=== PATIENT | male | born 1975 | race Hispanic/Latino ===

== ENCOUNTER 2016-08-18 20:15 | Emergency (ER) | payer OTHER ==
[~2016-08-18 20:15] MED LIST: ADVAIR DISKUS1 UNIT INH; ALBUTEROL SULFAT3 M1 INH; ALLEGRA180 MG PO; DESONIDE TOP; MONTELUKAST SOD10 MG PO; NASONEX0.05 MG/Ac NAS; PREDNISONE 20MG20 MG PO; PROAIR HFA0.09 MG/Ac INH; PROBIOTIC1 EACH PO; TRIAMCINOLONE 0.1 GM TOP; VENTOLIN H0.09 MG/Ac INH; VOLTAREN50 MG PO; ZOFRAN4 MG PO
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
[2016-08-19 00:49] VITALS: BP 111/67
== END 2016-08-19 01:34 ==
LOC: ERH 20:15
DX: T18.108A Unspecified foreign body in esophagus causing other injury, initial encounter (principal)
CPT/HCPCS: 96374; 96375; J1610; J1885; J3490